=== PATIENT | male | born 1985 | race Caucasian/White ===

== ENCOUNTER 2024-10-04 00:49 | Outpatient (CLI) | payer MEDICAID, SELFPAY ==
--- NOTE | 2024-10-04 13:15 | DI.RAD_ITS ---
Exam(s) XR ANKLE LT COMPLETE EXAM: XR ANKLE LT COMPLETE CLINICAL HISTORY: ? loosening screw, pain lt ankle, m25.572. TECHNIQUE: 2D digital imaging was performed. COMPARISON: No exams were available for comparison FINDINGS: 3 views There is a lateral fixation plate across a healed fracture site in the distal fibula as well as an in dependent oblique screw at the fracture site. There are also 2 screws across healed fracture of the medial malleolus. There is no hardware loosening nor migration. No radiographic evidence of osteomyelitis. Bone densi ty is normal. No osseous lesions nor erosions. No evidence of osteomyelitis. No obvious degenerati ve changes. IMPRESSION: Satisfactory appearance of hardware on both sides of the ankle as described above. DATA REPOSITORY: RADIATION DOSE DELIVERED:
== END 2024-10-04 01:09 ==
LOC: DI 00:49
PROVIDERS: PCP Family Medicine; Visit Provider Podiatrist
DX: M25.572 Pain in left ankle and joints of left foot (principal)
CPT/HCPCS: 73610

== ENCOUNTER 2025-03-12 10:03 | Day surgery (SDC) | payer MEDICAID, SELFPAY ==
--- NOTE | 2025-03-09 14:40 | NUR.NOTE ---
x5 attempts to reach pt., x2 detailed messages left. Pt. called back and left voicemail, with a totally different number of [phone] to which this RN called twice and left a detailed voicemail on as well. Pt later called office to state he had not heard anything back and nor had he received any voicemails, when a second voicemail was left at the number he now provided to the office as [phone], this RN called that number immediately upon knowledge of this information, where it went to voicemail. Office informed of all of this, and they were able to let patient know his arrival time and instructions.Nursing Note:
[2025-03-12 10:29] VITALS: BP 126/69; PULSE 61; RESP 16; TEMP 36.5; O2SAT 95
[2025-03-12] MEDS: Lactated Ringers 1,000 ML 30 ML IV (10:47)
--- NOTE | 2025-03-12 10:53 | W.ANESPRE ---
General Info Date of Service Date Performed: 03/12/25 Height: 5 ft 5 in Weight: 72.6 kg Body Mass Index (BMI): 26.6 Surgical Procedure: Operation Date: 03/12/25 11:40 Proposed Procedure Side Surgeon p Hardware Removal-Ankle Left Bing Martinez DPM Meds Allergies and Home Medications Allergies Allergy/AdvReac Type Severity Reaction Status Date / Time insect venom Allergy Unknown unknown Verified 02/27/25 10:37 Home Medication ?Medication ?Instructions ?Recorded lisdexamfetamine 30 mg capsule 30 mg PO QAM 07/04/24 (Vyvanse) lisinopril 40 mg tablet 40 mg PO DAILY 07/04/24 pantoprazole 20 mg tablet,delayed 20 mg PO DAILY 07/04/24 release methadone 5 mg tablet See Rx Instructions PO DAILY 07/05/24 Current Visit Medications: Current Medications Generic Name Dose Route Start Last Admin Trade Name Freq PRN Reason Stop Dose Admin Ringer's Solution 1,000 mls @ 30 mls/hr 03/12/25 06:00 03/12/25 10:47 IV 04/08/25 23:59 30 mls/hr INFUSION CURT Administration Cefazolin Sodium/Dextrose 2 gm in 50 mls @ 100 mls/hr 03/12/25 06:00 Ancef Duplex IVPB 04/08/25 23:59 PREOP CURT IV Miscellaneous Supplies 1 each 03/12/25 06:00 Iv Access IV 04/08/25 23:59 DIRECTED CURT Sodium Chloride 0 ml 03/12/25 06:00 Normal Saline Flush 10 Ml Syr IV 04/08/25 23:59 PRN PRN Sodium Chloride 0 ml 03/12/25 06:00 Normal Saline 10 Ml Vial IJ 04/08/25 23:59 DIRECTED PRN Sterile Water 0 ml 03/12/25 06:00 Water,Injection,Sterile 10 Ml Vial IJ 04/08/25 23:59 DIRECTED PRN PFSH Active Problems Active Problems: Problem Status Onset Code Painful orthopaedic hardware Acute T84.84XA Pain in left ankle Acute M25.572 Pain in right foot Acute M79.671 Ingrown toenail Acute L60.0 Hypertriglyceridemia Acute E78.1 Opioid abuse Acute F11.10 Nicotine dependence Acute F17.200 GERD (gastroesophageal reflux disease) Chronic K21.9 Depressive disorder Chronic F32.A Bipolar disorder Acute F31.9 Hyperlipidemia Acute E78.5 ADHD Acute F90.9 Hypertension Chronic I10 Medical History Medical History Tachycardia Alcohol Alcohol Intake: never Substance Use Substance use type: former substance user Details: patient is on prescribed methadone Vital Signs and Lab Results Vital Signs Most Recent Vital Signs in EMR: Most Recent Vital Signs Temp Pulse Resp BP Pulse Ox 36.5 C 61 16 126/69 95 03/12/25 10:29 03/12/25 10:29 03/12/25 10:29 03/12/25 10:29 03/12/25 10:29 Anesthesia Assessment and Plan Anesthesia History Personal History: No History of Anesthesia Complications Family History: No Family History of Anesthesia Complications Exercise Tolerance Exercise Tolerance: Metabolic Equivalents>4 Pertinent Negatives Pertinent Negatives: No Symptoms of GERD, No Major Cardiovascular Symptoms or Complaints and No Major Pulmonary Symptoms or Complaints Cardiac & Pulmonary Exam Cardiac Exam: Heart Murmur Present (New murmur per patient, S2) Pulmonary Exam: Clear Bilateral Breath Sounds Cardiac and Pulmonary Comment:: Daily THC vape Implantable Cardiac Device Does patient have a Pacemaker or an ICD?: No Airway Exam Known Difficult Airway: No Mallampati Class: 1 Mouth Opening: Normal (> 3cm) Thyromental Distance: Greater than 3 cm Neck Range of Motion: Full ROM Neck Circumference: Normal Teeth Condition: Generalized Poor Dentition (Several teeth missing) ASA Classification ASA Score: ASA 2 Emergency Case?: No NPO Status NPO Status: NPO Clears >2 hours, Solids >8 hours Anesthesia Plan Resuscitation Status: Full Code Anesthesia Technique: MAC Anesthesia Airway Planned: Natural Airway Monitors Used: Standard Monitors Preoperative Comments:: Given finding of new cardiac murmur, patient reports this is a new finding and H&P reviewed with no mention. EKG reviewed from H&P note. Plan for Dr. Martinez to provide LA and MAC anesthesia will be administered if required.
[2025-03-12 10:55] VITALS: BMI 26.6
[2025-03-12] MEDS: ceFAZolin 2 GM/50 ML BAG IVPB (12:02)
[2025-03-12] MEDS: Lidocaine 1% Pres-Free W/EPI 1/200,000 10 ML VIAL (12:10)
--- NOTE | 2025-03-12 12:30 | DI.RAD_ITS ---
Exam(s) XR ANKLE LT 2V EXAM: XR ANKLE LT 2V CLINICAL HISTORY: PAINFUL HARDWARE LEFT ANKLE. TECHNIQUE: 2D and realtime digital imaging was performed. COMPARISON: CR XR ANKLE LT COMPLETE from 10/04/2024 FINDINGS: Please see procedure note for details. Fluoro time: 1.5seconds RADIATION DOSE DELIVERED: issac Reyes=0.05 mGy
[2025-03-12 12:48] VITALS: BP 114/56; PULSE 67; RESP 16; TEMP 36.5; O2SAT 99
--- NOTE | 2025-03-12 12:49 | PDOC.DSDIS_ITS ---
Date of service: 03/12/25 Discharge Plan Disposition Patient Disposition: Home Condition: Stable Discharge Details Attending Provider: Bing Martinez Primary Care Provider: Elvia Gr Home Meds and New Rx's Prescriptions: No Action lisinopril 40 mg tablet 40 mg PO DAILY pantoprazole 20 mg tablet,delayed release (DR/EC) 20 mg PO DAILY lisdexamfetamine [Vyvanse] 30 mg capsule 30 mg PO QAM methadone 5 mg tablet See Rx Instructions PO DAILY Rx Instructions: orally daily; dose unverified; 118 mg reported from pcp office Discharge Instructions Additional Instructions: Patient to keep the dressings clean, dry and intact. Do not put weight on the surgical foot. Would do not let the dressings get wet. Please use crutches. You have an appointment on . Any nausea vomiting chills fever diarrhea please call us. Stand Alone Forms: Anesthesia Discharge Inst., Podiatry Instructions-[facility], Veronica Rhoades ([facility]) Referrals: Bing Martinez DPM [[facility] STAFF PHYSICIAN, Podiatry] - 03/15/25 1:00 pm Equipment/Supplies: Non-Weight Bearing Crutches Activity:: Elevate Remove Dressings/Wound Care:: Do Not Remove Shower/Bathe:: Cover Diet:: Normal Diet Discharge Orders Discharge Orders: Discharge Order (Routine); Ordered 03/12/25 Ordered By: Bing Martinez DS: Diagnosis Discharge Diagnosis (1) Painful orthopaedic hardware: Status: Acute (2) Pain in left ankle: Status: Acute (3) Nicotine dependence: Status: Acute (4) Opioid abuse: Status: Acute (5) Bipolar disorder: Status: Acute (6) Depressive disorder: Status: Chronic
--- NOTE | 2025-03-12 14:10 | W.PM.OP ---
Operative Note Operative Note PRE-OP DIAGNOSIS: Painful hardware, left ankle POST-OP DIAGNOSIS: same PROCEDURE: Hardware removal left ankle SURGEON: Bing Martinez ANESTHESIA TYPE: Local By Surgeon (17 mL 1% lidocaine with epi preop) Refer to Anesthesia Record ESTIMATED BLOOD LOSS: 10 COMPLICATIONS: None Patient was transported to: same day Patient's condition: stable Indications: This is a 40-year-old male patient with painful hardware to the left ankle medially status post ORIF about 10 years ago. Patient reports pain. There is palpable hardware to the medial malleolus consistent of 2 screws. Patient has tried offloading methods however pain persists. He would like hardware removal. I discussed the risk, benefits, possible complications of the procedure including but not limited to pain, nerve pain, CRPS, hematoma, seroma, scarring, inability to remove hardware, problems healing, need for further surgery or amputation, infection, DVT, PE, stroke, heart attack or . Patient consented to the procedure. No contraindications noted to the procedure. Procedure Description: Patient was brought to the ER placed in supine position with the OR team. The case was done under local anesthetic due to recently developed heart murmur. The left lower extremity was cleansed with alcohol immediately and a local block was performed using 17 mL 1% lidocaine with epi. The left lower extremity was scrubbed, prepped and draped in the usual aseptic manner. A 3 to 4 cm linear longitudinal incision was made directly overlying the medial malleolus at the site of palpable hardware. The incision was deepened through the skin and subcutaneous tissue, a capsular incision was made thus exposing 2 screws. The screws were freed using sharp and blunt dissection. After exposure of the screw heads, a 3.5 rail car driver was used to remove all the hardware. The hardware was removed in toto and passed from the operative field without any breaks. The area was flushed with copious amounts of sterile saline. The the ankle capsule was reapproximated using 3-0 Vicryl. The skin was then reapproximated and coapted using 3-0 nylon. Intraoperative fluoroscopy was used to ensure complete hardware removal. Dressings were then applied with Xeroform gauze, 4 x 4, Kerlix and an Rob wrap followed by a posterior splint which was very well-padded. Patient was transferred to same-day for further monitoring. He will be discharged home in stable patient to follow-up in clinic on . He will keep his dressings clean, dry and intact. Patient to remain nonweightbearing to the left lower extremity. Date of Procedure: 03/12/25
== END 2025-03-12 13:05 | disposition home or self-care (01) ==
PROVIDERS: PCP Student in an Organized Health Care Education/Training Program; Visit Provider Podiatrist
PROC: (CPT 20680; principal; 2025-03-12 11:30)
DX: T84.84XA Pain due to internal orthopedic prosthetic devices, implants and grafts, initial encounter (principal); M25.572 Pain in left ankle and joints of left foot; F17.210 Nicotine dependence, cigarettes, uncomplicated; F11.10 Opioid abuse, uncomplicated; F31.9 Bipolar disorder, unspecified; R73.03 Prediabetes; R01.1 Cardiac murmur, unspecified
CPT/HCPCS: 20680; 76000; 73600; J0690; J2004

== ENCOUNTER 2025-03-22 11:37 | Outpatient (CLI) | payer MEDICAID, SELFPAY ==
--- NOTE | 2025-03-22 11:30 | DI.RAD_ITS ---
Exam(s) XR ANKLE LT COMPLETE EXAM: XR ANKLE LT COMPLETE CLINICAL HISTORY: post op healing, pain lt ankle, s/p foot surgery, M25.572, Z98.890. TECHNIQUE: 2D digital imaging was performed. Three images were obtained. AP, lateral and oblique views were obtained. COMPARISON: CR XR ANKLE LT COMPLETE from 10/04/2024 XA XR ANKLE LT 2V from 03/12/2025 FINDINGS: BONES: There are stable post operative changes present in the distal fibula. Since the prior examination, there has been removal of the screws from the medial malleolus. No new fracture or dislocation. JOINTS: The joint spaces are well maintained. SOFT TISSUE: Normal. IMPRESSION: Stable postoperative changes. DATA REPOSITORY: RADIATION DOSE DELIVERED:
== END 2025-03-22 11:57 ==
LOC: DI 11:37
PROVIDERS: PCP Student in an Organized Health Care Education/Training Program; Visit Provider Podiatrist
DX: M25.572 Pain in left ankle and joints of left foot (principal); Z98.890 Other specified postprocedural states
CPT/HCPCS: 73610

== ENCOUNTER → 2025-04-18 02:06 | Outpatient (CLI) | payer MEDICAID, SELFPAY ==
--- NOTE | 2025-04-18 07:00 | DI.RAD_ITS ---
Exam(s) XR ANKLE LT COMPLETE EXAM: XR ANKLE LT COMPLETE CLINICAL HISTORY: post op,pain lt ankle,m25.572 TECHNIQUE: 2D digital imaging was performed. Three views. COMPARISON: CR XR ANKLE LT COMPLETE from 10/04/2024 XA XR ANKLE LT 2V from 03/12/2025 CR XR ANKLE LT COMPLETE from 03/22/2025 FINDINGS: BONES: No acute fracture is present. No bony destructive lesion is seen. Fixation plate remains in place along the lateral malleolus. No abnormal lucency in the medial malleolus or the previously noted screws have been removed. JOINTS:The ankle mortise is normally aligned. The ankle joint space is maintained. SOFT TISSUE: Normal. IMPRESSION: Stable postsurgical appearance. DATA REPOSITORY: RADIATION DOSE DELIVERED:
== END ==
LOC: DI 02:06
PROVIDERS: PCP Student in an Organized Health Care Education/Training Program; Visit Provider Podiatrist
DX: M25.572 Pain in left ankle and joints of left foot (principal); Z98.890 Other specified postprocedural states
CPT/HCPCS: 73610